=== PATIENT | female | born 1950 | race Caucasian/White ===

== ENCOUNTER 2017-02-10 13:45 | Observation (INO) | payer OTHER ==
[~2017-02-10] VITALS: Ht 154.9 cm; Wt 94.5 kg
[~2017-02-10 13:45] MED LIST: ATIVAN0.5 MG PO; BP PILL; CALCIUM; CALCIUM 600 +1 EAC2 PO; CENTRUM SILVER1 EAC3 PO; CINNABETIC1 CAPSUL1 PO; CIPRO500 MG PO; CRESTOR20 MG PO; CYCLOBENZAPRINE5 MG PO; DICYCLOMINE HCL10 MG PO; ECOTRIN325 MG PO; ENDOCET 5-3251 EACH PO; FLUID PILL; GLIPIZIDE-METF1 EAC2 PO; GLUCOSAMINE &1 EACH PO; IBUPROFEN IB200 MG PO; IBUPROFEN800 MG PO; LASIX10 MG PO; LASIX20 MG PO; LEVOTHROID25 MCG PO; LIBRAX CAPSULE1 EACH PO; LISINOPRIL10 MG PO; LORAZEPAM0.5 MG PO; LOTREL 5/201 CAPSULE PO; METRONIDAZOLE250 MG PO; METRONIDAZOLE500 MG PO; MICRO-K8 ME2 PO; MULTIVITAMIN1 EAC1 PO; OSTEO BI-FLEX1 EAC3 PO; PEPTO BISMOL262 MG PO; PERCOCET 5/31 TABLET PO; POTASSIUM; ROXICET 5-3251 EACH PO; SIMVASTATIN40 MG PO; VITAMIN C1000 MG PO
[2017-02-10 14:44] LABS: HEMATOCRIT 38.1 % (36.0-46.0); MCH 31.2 PG (29.0-34.0); MCHC 33.9 G/DL (30.0-36.0); MEAN PLAT.VOLUME 10.5 uM^3 (9.5-12.4); PLATELET COUNT 235 K/uL (156-360); RBC DIS.WIDTH-CV 12.7 % (11.8-14.6); RBC DIS.WIDTH-SD 42.8 % (39-53); RED BLOOD COUNT 4.14 M/uL (3.80-5.20); WHITE BLOOD COUNT 6.9 K/uL (4.1-10.2)
[2017-02-10 14:54] LABS: CHLORIDE 105 mEq/L (99-109); POTASSIUM 3.8 mEq/L (3.7-5.4); SODIUM 141 mEq/L (136-147)
[2017-02-10 14:55] LABS: GLUCOSE 173 mg/dL (70-99)
[2017-02-10 14:57] LABS: ANION GAP 13 MEQ/L (2-14)
[2017-02-10 14:59] LABS: GFR ESTIMATE (CALCULATED) > 59 mL/min/
[2017-02-10 15:00] LABS: UREA NITROGEN (BUN) 12 mg/dL (9-23)
[2017-02-10 15:05] LABS: TROP-I INTERPRETATION NEGATIVE; TROPONIN-I < 0.01 ng/mL (0.0-0.30)
[2017-02-10] MEDS ORDERED: GABAPENTIN300 MG PO (16:40)
[2017-02-10] MEDS ORDERED: HUMALOG100 UNIT/1 SC (16:40)
[2017-02-10] MEDS ORDERED: INDERAL LA80 MG PO (16:40)
[2017-02-10] MEDS ORDERED: LEVEMIR FL100 UNIT/1 SC (16:40)
[2017-02-10 17:51] LABS: HDL CHOLESTEROL 53 MG/DL (Desirable>=50); LDL CHOLESTEROL 77 mg/dL (Desirable<100); NON-HDL CHOLESTEROL 115 mg/dL (Desirable<160); TOTAL CHOLESTEROL 168 mg/dL (Desirable<200); TRIGLYCERIDES 192 MG/DL (Normal: <150)
[2017-02-10 19:35] VITALS: BP 142/79
[2017-02-10 21:13] LABS: POINT-OF-CARE METER ID UU13113700
[2017-02-10 22:00] LABS: TROP-I INTERPRETATION NEGATIVE; TROPONIN-I < 0.01 ng/mL (0.0-0.30)
[2017-02-11] VITALS: BP 101/56
[2017-02-11 04:25] VITALS: BP 107/58
[2017-02-11 05:41] LABS: TROP-I INTERPRETATION NEGATIVE; TROPONIN-I < 0.01 ng/mL (0.0-0.30)
[2017-02-11 08:11] LABS: POINT-OF-CARE METER ID UU13113700
[2017-02-11 08:31] VITALS: BP 130/60
== END 2017-02-11 11:40 | disposition home or self-care (01) ==
LOC: EME 13:45 → EDOF 16:07 → ENRESERV 16:21 → 5WEST 19:16
PROVIDERS: Internal Medicine
DX: R07.9 Chest pain, unspecified (principal); I25.10 Atherosclerotic heart disease of native coronary artery without angina pectoris; E11.9 Type 2 diabetes mellitus without complications; I10 Essential (primary) hypertension; E78.5 Hyperlipidemia, unspecified; Z82.49 Family history of ischemic heart disease and other diseases of the circulatory system; Z86.19 Personal history of other infectious and parasitic diseases; M19.90 Unspecified osteoarthritis, unspecified site; K21.9 Gastro-esophageal reflux disease without esophagitis; Z79.4 Long term (current) use of insulin; Z85.820 Personal history of malignant melanoma of skin; Z80.2 Family history of malignant neoplasm of other respiratory and intrathoracic organs; Z88.1 Allergy status to other antibiotic agents; Z88.8 Allergy status to other drugs, medicaments and biological substances
CPT/HCPCS: 70450; 71020; 71275; 80048; 80061; 81003; 82948; 84484; 85027; 93005; 99281; 99285; G0378; J1650; J2270; J7030; J7040

== ENCOUNTER 2017-08-21 14:29 | Emergency (ER) | payer OTHER ==
[~2017-08-21] VITALS: Ht 154.9 cm; Wt 94.1 kg
[~2017-08-21 14:29] MED LIST changes: +BENAZEPRIL-HCT1 EAC2 PO; +GABAPENTIN300 MG PO; +HUMALOG100 UNIT/2 SC; +INDERAL LA80 MG PO; +LEVEMIR FL100 UNIT/1 SC; -LOTREL 5/201 CAPSULE PO; -SIMVASTATIN40 MG PO
[2017-08-21 17:26] LABS: HEMATOCRIT 37.3 % (36.0-46.0); MCH 31.6 PG (29.0-34.0); MCHC 34.9 G/DL (30.0-36.0); MCV 90.5 FL (83-99); PLATELET COUNT 303 K/uL (156-360); RBC DIS.WIDTH-CV 12.7 % (11.8-14.6); RBC DIS.WIDTH-SD 42.1 % (39-53); RED BLOOD COUNT 4.12 M/uL (3.80-5.20); WHITE BLOOD COUNT 11.2 K/uL (4.1-10.2)
[2017-08-21] MEDS ORDERED: AUGMENTIN875 MG PO (17:35)
[2017-08-21 17:41] LABS: CHLORIDE 94 mEq/L (99-109); SODIUM 135 mEq/L (136-147)
[2017-08-21 17:43] LABS: GLUCOSE 107 mg/dL (70-99)
[2017-08-21 17:46] LABS: CREATININE 0.9 mg/dL (0.6-1.3); GFR ESTIMATE (CALCULATED) > 59 mL/min/
[2017-08-21 17:47] LABS: UREA NITROGEN (BUN) 17 mg/dL (9-23)
[2017-08-21 18:06] VITALS: BP 158/80
== END 2017-08-21 18:07 | disposition home or self-care (01) ==
LOC: EME 14:29
PROVIDERS: Nurse Practitioner Family
DX: R13.10 Dysphagia, unspecified (principal); E11.9 Type 2 diabetes mellitus without complications; Z79.4 Long term (current) use of insulin; I10 Essential (primary) hypertension; I25.2 Old myocardial infarction; Z85.820 Personal history of malignant melanoma of skin
CPT/HCPCS: 70360; 80048; 85027; 99281; 99284; J1100

== ENCOUNTER 2017-08-28 07:58 | Observation (INO) | payer OTHER ==
[~2017-08-28] VITALS: Ht 154.9 cm; Wt 90.3 kg
[~2017-08-28 07:58] MED LIST changes: +AUGMENTIN875 MG PO
[2017-08-28 08:44] LABS: HEMATOCRIT 35.8 % (36.0-46.0); HEMOGLOBIN 12.5 G/DL (11.9-15.5); MCH 31.4 PG (29.0-34.0); MCHC 34.9 G/DL (30.0-36.0); MCV 89.9 FL (83-99); PLATELET COUNT 291 K/uL (156-360); RBC DIS.WIDTH-CV 12.6 % (11.8-14.6); RBC DIS.WIDTH-SD 41.6 % (39-53); RED BLOOD COUNT 3.98 M/uL (3.80-5.20); WHITE BLOOD COUNT 9.7 K/uL (4.1-10.2)
[2017-08-28 08:56] LABS: ALBUMIN 4.5 g/dL (3.2-4.8)
[2017-08-28 08:57] LABS: CHLORIDE 93 mEq/L (99-109); POTASSIUM 2.9 mEq/L (3.7-5.4); SODIUM 136 mEq/L (136-147)
[2017-08-28 08:59] LABS: GLUCOSE 136 mg/dL (70-99); TOTAL PROTEIN 7.9 g/dL (6.4-8.3)
[2017-08-28 09:01] LABS: TOTAL BILIRUBIN 0.8 mg/dL (0.0-1.0)
[2017-08-28 09:02] LABS: ALKALINE PHOSPHATASE 63 IU/L (3-129)
[2017-08-28 09:03] LABS: CREATININE 1.1 mg/dL (0.6-1.3); GFR ESTIMATE (CALCULATED) 53 mL/min/
[2017-08-28 09:04] LABS: AST (GOT) 27 IU/L (2-34); UREA NITROGEN (BUN) 16 mg/dL (9-23)
[2017-08-28 09:06] LABS: ALT (GPT) 28 IU/L (3-49); LIPASE 33 U/L (1.0-51.0)
[2017-08-28 09:09] LABS: TROP-I INTERPRETATION NEGATIVE; TROPONIN-I < 0.01 ng/mL (0.0-0.30)
[2017-08-28] MEDS ORDERED: VICTOZA 2-0.6 MG/0.1 SC (10:17)
[2017-08-28] MEDS ORDERED: OMEPRAZOLE40 M1 PO (10:19)
[2017-08-28 10:52] VITALS: BP 160/74
[2017-08-28 15:31] VITALS: BP 158/74
[2017-08-28 15:39] LABS: TROP-I INTERPRETATION NEGATIVE; TROPONIN-I < 0.01 ng/mL (0.0-0.30)
[2017-08-28 19:44] VITALS: BP 131/68
[2017-08-28 21:01] LABS: TROP-I INTERPRETATION NEGATIVE; TROPONIN-I < 0.01 ng/mL (0.0-0.30)
[2017-08-28 21:06] LABS: CHLORIDE 97 MEQ/L (99-109); CREATININE 1.1 MG/DL (0.6-1.3); GFR ESTIMATE (CALCULATED) 53 mL/min/; GLUCOSE 110 mg/dL (70-99); MAGNESIUM 1.8 mg/dl (1.3-2.7); POTASSIUM 3.3 MEQ/L (3.7-5.4); SODIUM 136 MEQ/L (136-147); UREA NITROGEN (BUN) 15 mg/dL (9-23)
[2017-08-29 00:05] VITALS: BP 134/65
[2017-08-29 04:12] VITALS: BP 129/63
[2017-08-29 06:19] LABS: CHLORIDE 96 MEQ/L (99-109); CREATININE 0.9 MG/DL (0.6-1.3); GFR ESTIMATE (CALCULATED) > 59 mL/min/; GLUCOSE 133 mg/dL (70-99); SODIUM 139 MEQ/L (136-147); UREA NITROGEN (BUN) 15 mg/dL (9-23)
[2017-08-29 06:21] LABS: POTASSIUM 4.2 MEQ/L (3.7-5.4)
[2017-08-29 07:54] VITALS: BP 127/77
[2017-08-29 12:16] VITALS: BP 129/61
[2017-08-29 16:25] VITALS: BP 121/60
== END 2017-08-29 19:49 | disposition home or self-care (01) ==
LOC: EME 07:58 → 5WEST 09:13 → EDOF 09:13 → ENRESERV 09:14 → EDOF 09:47 → 5WEST 10:38 → ENRESERV 16:41 → 5WEST 18:57
PROVIDERS: Internal Medicine; Physician Assistant; Physician Assistant Medical
DX: R07.9 Chest pain, unspecified (principal); E87.6 Hypokalemia; I25.10 Atherosclerotic heart disease of native coronary artery without angina pectoris; E11.9 Type 2 diabetes mellitus without complications; Z79.4 Long term (current) use of insulin; Z86.19 Personal history of other infectious and parasitic diseases; I10 Essential (primary) hypertension; E78.5 Hyperlipidemia, unspecified; M19.90 Unspecified osteoarthritis, unspecified site; K21.9 Gastro-esophageal reflux disease without esophagitis; Z85.820 Personal history of malignant melanoma of skin; Z90.49 Acquired absence of other specified parts of digestive tract; E66.9 Obesity, unspecified; Z82.49 Family history of ischemic heart disease and other diseases of the circulatory system; Z82.0 Family history of epilepsy and other diseases of the nervous system; Z88.1 Allergy status to other antibiotic agents; Z88.8 Allergy status to other drugs, medicaments and biological substances
CPT/HCPCS: 71046; 78452; 80048; 80048 91; 80053; 82948; 83690; 83735; 84484; 85027; 93005; 93017; 93306; 99281; 99285; A9500; G0378; J1650; J2270; J2405; J2785

== ENCOUNTER 2017-09-14 09:51 | Day surgery (SDC) | payer OTHER ==
[~2017-09-14] VITALS: Ht 154.9 cm; Wt 93.0 kg
[~2017-09-14 09:51] MED LIST changes: +OMEPRAZOLE40 M1 PO; +VICTOZA 2-0.6 MG/0.1 SC
== END 2017-09-14 17:45 | disposition home or self-care (01) ==
LOC: CATH 09:51
PROVIDERS: Internal Medicine Cardiovascular Disease
DX: I25.10 Atherosclerotic heart disease of native coronary artery without angina pectoris (principal); I10 Essential (primary) hypertension; E78.5 Hyperlipidemia, unspecified; E11.9 Type 2 diabetes mellitus without complications; I70.213 Atherosclerosis of native arteries of extremities with intermittent claudication, bilateral legs; E66.9 Obesity, unspecified; Z68.38 Body mass index [BMI] 38.0-38.9, adult; Z79.82 Long term (current) use of aspirin; Z79.4 Long term (current) use of insulin
CPT/HCPCS: 82948; C1769; C1887; C1894; J1200; J1644; J2250; J7040